=== PATIENT | female | born 1960 | race Asian ===

== ENCOUNTER 2017-09-01 11:55 | Emergency (ER) | payer BC ==
[~2017-09-01] VITALS: Ht 152.4 cm; Wt 63.0 kg
[2017-09-01 12:34] LABS: BASOPHILS % (AUTO) 0.4 % (0-1); EOSINOPHILS # (AUTO) 0.2 X10'3 (0-0.9); EOSINOPHILS % (AUTO) 2.8 % (0-6); HEMATOCRIT 37.4 % (35.0-45.0); HEMOGLOBIN 13.3 g/dl (12.0-16.0); LYMPHOCYTES # (AUTO) 0.9 X10'3 (1.1-4.8); MEAN CORPUSCULAR HEMOGLOBIN 30.4 PG (27.0-31.0); MEAN CORPUSCULAR HGB CONC 35.4 % (33.0-36.5); MEAN CORPUSCULAR VOLUME 85.9 FL (78-98); MEAN PLATELET VOLUME 8.3 FL (7.4-10.4); MONOCYTES # (AUTO) 0.4 X10'3 (0-0.9); MONOCYTES % (AUTO) 6.3 % (2-12); NEUTROPHILS # (AUTO) 4.2 X10'3 (1.8-7.7); NEUTROPHILS % (AUTO) 74.5 % (42-75); PLATELET COUNT 203 X10'3 (140-440); RED BLOOD COUNT 4.36 X10'6 (4.20-5.60); RED CELL DISTRIBUTION WIDTH 13.6 % (11.5-14.5); WHITE BLOOD COUNT 5.6 X10'3 (4.5-11.0)
[2017-09-01 12:48] LABS: PARTIAL THROMBOPLASTIN TIME 28 SECONDS (22-32)
[2017-09-01 13:00] LABS: ALANINE AMINOTRANSFERASE 29 U/L (12-78); ALBUMIN 4.2 G/DL (3.4-5.0); ALBUMIN/GLOBULIN RATIO 1.1 (1.1-1.5); ALKALINE PHOSPHATASE 68 IU/L (46-116); ANION GAP 9 (8-16); ASPARTATE AMINO TRANSFERASE 28 U/L (10-37); BILIRUBIN,TOTAL 0.5 MG/DL (0.1-1.0); BLOOD UREA NITROGEN 15 MG/DL (7-18); CALCIUM 9.7 MG/DL (8.5-10.1); CHLORIDE 103 MMOL/L (99-107); CREATININE 0.75 MG/DL (0.40-0.90); GLUCOSE 140 MG/DL (70-104); POTASSIUM 4.3 MMOL/L (3.5-5.1); SODIUM 141 MMOL/L (135-145); TOTAL CARBON DIOXIDE 29.2 MMOL/L (24-32); TOTAL PROTEIN 7.9 G/DL (6.4-8.2); eGFR 80 ML/MIN
[2017-09-01] MEDS ORDERED: mag hydrox/Alum hydrox/simeth 30ml oral suspension PO ONE (13:20)
[2017-09-01] MEDS ORDERED: LIDOcaine Viscous 15ml cup PO ONE (13:20)
[2017-09-01] MEDS ORDERED: ketorolac trometh. 30mg/ml inj. IM ONE (13:20)
[2017-09-01] MEDS ORDERED: NAPR-56 PO (13:31)
[2017-09-01 14:05] VITALS: BP 122/79
== END 2017-09-01 14:07 | disposition home or self-care (01) ==
LOC: ER 11:55
DX: R07.89 Other chest pain (principal); I10 Essential (primary) hypertension; E78.00 Pure hypercholesterolemia, unspecified
CPT/HCPCS: 36415; 71045; 80053; 84484; 85025; 85610; 85730; 93005; 99285; J1885

== ENCOUNTER 2017-09-03 09:00 | Inpatient (IN) | payer OTHER, BC ==
[2017-09-03] VITALS (12 sets, daily range): BP systolic 109–154; BP diastolic 56–86
[~2017-09-03] VITALS: Ht 152.4 cm; Wt 67.0 kg
[~2017-09-03 09:00] MED LIST: NAPR-56 PO
[2017-09-03] MEDS ORDERED: nitroGLYCERIN 0.4mg SUBLingual tab SL PRN ×2 (09:10→10:45)
[2017-09-03] MEDS ORDERED: aspirin 81mg tab.chew PO ONE (09:10)
[2017-09-03 09:22] LABS: BASOPHILS % (AUTO) 0.4 % (0-1); EOSINOPHILS # (AUTO) 0.1 X10'3 (0-0.9); EOSINOPHILS % (AUTO) 1.6 % (0-6); HEMATOCRIT 37.9 % (35.0-45.0); HEMOGLOBIN 13.1 g/dl (12.0-16.0); LYMPHOCYTES # (AUTO) 1.3 X10'3 (1.1-4.8); LYMPHOCYTES % (AUTO) 20.1 % (21-51); MEAN CORPUSCULAR HGB CONC 34.6 % (33.0-36.5); MEAN CORPUSCULAR VOLUME 86.6 FL (78-98); MEAN PLATELET VOLUME 7.9 FL (7.4-10.4); MONOCYTES # (AUTO) 0.6 X10'3 (0-0.9); MONOCYTES % (AUTO) 8.9 % (2-12); NEUTROPHILS # (AUTO) 4.4 X10'3 (1.8-7.7); PLATELET COUNT 207 X10'3 (140-440); RED BLOOD COUNT 4.38 X10'6 (4.20-5.60); RED CELL DISTRIBUTION WIDTH 12.9 % (11.5-14.5); WHITE BLOOD COUNT 6.4 X10'3 (4.5-11.0)
[2017-09-03 09:33] LABS: D-DIMER 0.98 MG/L FEU (0-0.50)
[2017-09-03] MEDS ORDERED: morphine 4 MG/ML inj SYRINge IV ONE ×2 (09:35→19:30)
[2017-09-03] MEDS ORDERED: mag hydrox/Alum hydrox/simeth 30ml oral suspension PO ONE (09:40)
[2017-09-03] MEDS ORDERED: famotidine/PF 10 mg/ml inj IV ONE (09:40)
[2017-09-03] MEDS ORDERED: LIDOcaine Viscous 15ml cup PO ONE (09:40)
[2017-09-03] MEDS ORDERED: sucralfate 1 gm tablet PO ONE (09:40)
[2017-09-03 09:44] LABS: ALANINE AMINOTRANSFERASE 25 U/L (12-78); ALBUMIN 2.7 G/DL (3.4-5.0); ALBUMIN/GLOBULIN RATIO 0.6 (1.1-1.5); ALKALINE PHOSPHATASE 68 IU/L (46-116); ANION GAP 6 (8-16); ASPARTATE AMINO TRANSFERASE 24 U/L (10-37); BILIRUBIN,TOTAL 0.5 MG/DL (0.1-1.0); BLOOD UREA NITROGEN 13 MG/DL (7-18); BUN/CREATININE RATIO 16.9 (6.6-38.0); CHLORIDE 104 MMOL/L (99-107); CREATININE 0.77 MG/DL (0.40-0.90); GLUCOSE 99 MG/DL (70-104); POTASSIUM 3.8 MMOL/L (3.5-5.1); SODIUM 140 MMOL/L (135-145); TOTAL CARBON DIOXIDE 29.9 MMOL/L (24-32); TOTAL PROTEIN 7.5 G/DL (6.4-8.2); eGFR 77 ML/MIN
[2017-09-03] MEDS ORDERED: iohexol 350MG/ML 100ml bottle IV ONE (10:23)
[2017-09-03] MEDS: normal saline 1000ml 1,000 ML IV SCH ×2 (10:39→17:19)
[2017-09-03] MEDS ORDERED: magnesium hydroxide 30ml (MOM) UD suspension PO PRN (10:40)
[2017-09-03] MEDS ORDERED: acetaminophen 325mg tablet PO PRN (10:40)
[2017-09-03] MEDS ORDERED: ondansetron/PF 4mg/2ml inj IV PRN (10:40)
[2017-09-03] MEDS ORDERED: CAFFEINE CITRATE 60 MG/3 ML injection vial IV PRN (10:45)
[2017-09-03] MEDS ORDERED: metoprolol tartrate 1mg/ml inj IV PRN (10:45)
[2017-09-03] MEDS: regadenoson 0.4mg/5ml syringe IV ONE ×2 (10:45→14:09)
[2017-09-03] MEDS ORDERED: regadenoson 0.4mg/5ml syringe IV ONE (13:59)
[2017-09-03] MEDS ORDERED: CAFFEINE CITRATE 60 MG/3 ML injection vial IV ONE (13:59)
[2017-09-03 17:10] LABS: LIPASE 104 U/L (73-393)
[2017-09-03] MEDS: mag hydrox/Alum hydrox/simeth 30ml oral suspension PO PRN ×2 (17:17→22:39)
[2017-09-03] MEDS ORDERED: pantoprazole 40 MG vial IV ONE (19:30)
[2017-09-04] VITALS (14 sets, daily range): BP systolic 112–154; BP diastolic 58–82
[2017-09-04] MEDS ORDERED: zolpidem 5mg tablet PO ONE (00:35)
[2017-09-04] MEDS ORDERED: HYDROcodone/acetaminophen 5mg/325mg tablet PO ONE (00:35)
[2017-09-04] MEDS: normal saline 1000ml 1,000 ML IV SCH ×2 (03:31→16:33)
[2017-09-04] MEDS: pantoprazole 40mg Tablet.DR PO SCH (07:25)
[2017-09-04] MEDS: mag hydrox/Alum hydrox/simeth 30ml oral suspension PO PRN ×3 (09:56→21:02)
[2017-09-04] MEDS ORDERED: LISI-600 PO (10:41)
[2017-09-04] MEDS ORDERED: FAMO20TA8 PO (10:41)
[2017-09-04] MEDS ORDERED: ZOLP12.543 (10:41)
[2017-09-04] MEDS ORDERED: normal saline 1000ml 1,000 ML IV SCH (13:47)
[2017-09-04] MEDS ORDERED: fentaNYL/PF 50MCG/1 ML 2ML syringe IV PRN (13:50)
[2017-09-04] MEDS ORDERED: MIDAZolam 5mg/5ml vial IV PRN (13:50)
[2017-09-04] MEDS ORDERED: simethicone 40mg/0.6ml oral drops 30ml MC ONE (13:50)
[2017-09-04] MEDS ORDERED: LIDOcaine Viscous 15ml cup PO ONE (13:50)
[2017-09-04] MEDS ORDERED: fentaNYL/PF 50MCG/1 ML 2ML syringe ONE (15:01)
[2017-09-04] MEDS ORDERED: LIDOcaine Viscous 15ml cup ONE (15:01)
[2017-09-04] MEDS ORDERED: MIDAZolam 5mg/5ml vial ONE (15:01)
[2017-09-04] MEDS ORDERED: HYDROcodone/acetaminophen 5mg/325mg tablet PO PRN (20:30)
[2017-09-05] MEDS: normal saline 1000ml 1,000 ML IV SCH (02:34)
[2017-09-05] MEDS: mag hydrox/Alum hydrox/simeth 30ml oral suspension PO PRN ×3 (02:35→13:04)
[2017-09-05 06:51] VITALS: BP 127/53
[2017-09-05] MEDS ORDERED: lisinopril 5mg tablet PO SCH (08:00)
[2017-09-05] MEDS: pantoprazole 40mg Tablet.DR PO SCH (08:00)
[2017-09-05 11:41] VITALS: BP 135/67
[2017-09-05] MEDS ORDERED: LORazepam 0.5 MG tablet PO PRN (12:40)
[2017-09-05] MEDS ORDERED: ATI0.5T PO (13:01)
[2017-09-05] MEDS ORDERED: HYDR-569 PO (13:01)
[2017-09-05] MEDS ORDERED: PANT40TA4 PO (13:01)
[2017-09-06] MEDS ORDERED: HYDR-569 PO (15:31)
[2017-09-06] MEDS ORDERED: ATI0.5T PO (15:31)
== END 2017-09-05 15:30 | disposition home or self-care (01) | DRG 440 ==
LOC: ER 09:00 → ED HOLD 10:45 → EDBEDREQ 15:03 → MED 3N 16:00
PROVIDERS: ADMIT Internal Medicine; ATTEND Internal Medicine
PROC: 0DB48ZX Excision of Esophagogastric Junction, Via Natural or Artificial Opening Endoscopic, Diagnostic (ICD-10-PCS; principal; 2017-09-04)
PROC: 0DB68ZX Excision of Stomach, Via Natural or Artificial Opening Endoscopic, Diagnostic (ICD-10-PCS; 2017-09-04)
DX: K86.9 Disease of pancreas, unspecified (principal); R13.10 Dysphagia, unspecified; E78.00 Pure hypercholesterolemia, unspecified; E78.5 Hyperlipidemia, unspecified; F41.9 Anxiety disorder, unspecified; F41.1 Generalized anxiety disorder; K21.0 Gastro-esophageal reflux disease with esophagitis; G89.29 Other chronic pain; I10 Essential (primary) hypertension; M54.2 Cervicalgia; Z79.899 Other long term (current) drug therapy
CPT/HCPCS: 36415; 43239; 71045; 71275; 78452; 80053; 82378; 83690; 83880; 84484; 85025; 85379; 86301; 87070; 93017; 96374; 99285; A4620; A9500; C9113; G0500; J2250; J2270; J3010; J3490; J7030; Q9967

== ENCOUNTER 2017-09-23 13:08 | Emergency (ER) | payer OTHER, BC ==
[~2017-09-23] VITALS: Ht 152.4 cm; Wt 61.0 kg
[~2017-09-23 13:08] MED LIST changes: +ATI0.5T PO; +FAMO20TA8 PO; +HYDR-569 PO; +LISI-600 PO; -NAPR-56 PO; +PANT40TA4 PO; +ZOLP12.543
[2017-09-23] MEDS ORDERED: cloNIDine 0.1 mg tablet PO ONE (13:40)
[2017-09-23] MEDS ORDERED: LORazepam 1 MG tablet PO ONE (13:40)
[2017-09-23 13:52] LABS: BASOPHILS # (AUTO) 0.1 X10'3 (0-0.2); BASOPHILS % (AUTO) 1.6 % (0-1); EOSINOPHILS # (AUTO) 0.2 X10'3 (0-0.9); EOSINOPHILS % (AUTO) 4.5 % (0-6); HEMATOCRIT 36.4 % (35.0-45.0); HEMOGLOBIN 12.5 g/dl (12.0-16.0); LYMPHOCYTES % (AUTO) 28.5 % (21-51); MEAN CORPUSCULAR HEMOGLOBIN 30.1 PG (27.0-31.0); MEAN CORPUSCULAR HGB CONC 34.3 % (33.0-36.5); MEAN CORPUSCULAR VOLUME 87.8 FL (78-98); MEAN PLATELET VOLUME 8.3 FL (7.4-10.4); MONOCYTES # (AUTO) 0.5 X10'3 (0-0.9); MONOCYTES % (AUTO) 15.1 % (2-12); NEUTROPHILS # (AUTO) 1.7 X10'3 (1.8-7.7); NEUTROPHILS % (AUTO) 50.3 % (42-75); PLATELET COUNT 181 X10'3 (140-440); RED BLOOD COUNT 4.14 X10'6 (4.20-5.60); RED CELL DISTRIBUTION WIDTH 13.3 % (11.5-14.5); WHITE BLOOD COUNT 3.4 X10'3 (4.5-11.0)
[2017-09-23 13:57] LABS: CLARITY,URINE Clear (Clear); COLOR,URINE Yellow (Yellow); GLUCOSE, URINE Negative (Neg); KETONES,URINE Negative (Neg); LEUKOCYTE ESTERASE ,URINE Negative (Neg); NITRITES, URINE Negative (Neg); OCCULT BLOOD,URINE Negative (Neg); PH,URINE 6.5 (4.8-8.0); PROTEIN,URINE Negative (Neg)
[2017-09-23 14:02] LABS: UA COLLECTION TYPE CLN CATCH MIDSTREAM
[2017-09-23 14:06] LABS: ALANINE AMINOTRANSFERASE 30 U/L (12-78); ALBUMIN 3.9 G/DL (3.4-5.0); ALKALINE PHOSPHATASE 76 IU/L (46-116); ANION GAP 5 (8-16); ASPARTATE AMINO TRANSFERASE 21 U/L (10-37); BILIRUBIN,TOTAL 0.3 MG/DL (0.1-1.0); BLOOD UREA NITROGEN 10 MG/DL (7-18); BUN/CREATININE RATIO 14.3 (6.6-38.0); CALCIUM 9.2 MG/DL (8.5-10.1); CHLORIDE 105 MMOL/L (99-107); GLUCOSE 99 MG/DL (70-104); POTASSIUM 3.6 MMOL/L (3.5-5.1); SODIUM 140 MMOL/L (135-145); TOTAL CARBON DIOXIDE 30.2 MMOL/L (24-32); TOTAL PROTEIN 7.7 G/DL (6.4-8.2); eGFR 86 ML/MIN
[2017-09-23] MEDS ORDERED: ondansetron/PF 4mg/2ml inj IV ONE (21:45)
== END 2017-09-23 23:15 | disposition short-term general hospital (02) ==
LOC: ER 13:09
DX: E23.7 Disorder of pituitary gland, unspecified (principal); R51 Headache; R07.9 Chest pain, unspecified; I10 Essential (primary) hypertension; E78.00 Pure hypercholesterolemia, unspecified; Z79.899 Other long term (current) drug therapy
CPT/HCPCS: 36415; 70450; 70543; 70553; 71045; 80053; 81003; 83880; 84146; 84484; 85025; 93005; 96374; 99285; J2405

== ENCOUNTER 2020-03-28 14:43 | Emergency (ER) | payer OTHER, BC ==
[~2020-03-28] VITALS: Ht 154.9 cm; Wt 69.0 kg
[~2020-03-28 14:43] MED LIST changes: +HYDR-4383 PO; -HYDR-569 PO; -PANT40TA4 PO; +PANT40TA54 PO
[2020-03-28 14:51] VITALS: BP 130/81
[2020-03-28 15:46] LABS: BASOPHILS % (AUTO) 0.4 % (0-1); EOSINOPHILS # (AUTO) 0.1 X10'3 (0-0.9); EOSINOPHILS % (AUTO) 1.6 % (0-6); HEMATOCRIT 36.1 % (35.0-45.0); HEMOGLOBIN 12.3 g/dl (12.0-16.0); LYMPHOCYTES # (AUTO) 1.2 X10'3 (1.1-4.8); LYMPHOCYTES % (AUTO) 21.1 % (21-51); MEAN CORPUSCULAR HEMOGLOBIN 29.2 PG (27.0-31.0); MEAN PLATELET VOLUME 8.4 FL (7.4-10.4); MONOCYTES # (AUTO) 0.4 X10'3 (0-0.9); MONOCYTES % (AUTO) 7.1 % (2-12); NEUTROPHILS # (AUTO) 3.9 X10'3 (1.8-7.7); NEUTROPHILS % (AUTO) 69.8 % (42-75); PLATELET COUNT 189 X10'3 (140-440); WHITE BLOOD COUNT 5.6 X10'3 (4.5-11.0)
[2020-03-28] MEDS ORDERED: HYDROcodone/acetaminophen 5mg/325mg tablet PO ONE (16:00)
[2020-03-28] MEDS ORDERED: ondansetron 4mg rapidly disintigrating tab PO ONE (16:00)
[2020-03-28] MEDS ORDERED: LORazepam 0.5 MG tablet PO ONE (16:00)
[2020-03-28 16:22] LABS: CLARITY,URINE SLIGHTLY CLOUDY (Clear); COLOR,URINE STRAW (Yellow); GLUCOSE, URINE NEGATIVE (Neg); KETONES,URINE NEGATIVE (Neg); LEUKOCYTE ESTERASE ,URINE SMALL (Neg); NITRITES, URINE NEGATIVE (Neg); OCCULT BLOOD,URINE NEGATIVE (Neg); PROTEIN,URINE NEGATIVE (Neg); UROBILINOGEN,URINE 0.2 E.U/dL (0.2-1.0)
[2020-03-28 16:27] LABS: UA COLLECTION TYPE CLN CATCH MIDSTREAM
[2020-03-28 16:28] LABS: BACTERIA,URINE FEW /HPF (Neg); RBC,URINE 0-2 /HPF (0-2); SQUAMOUS EPITHELIAL CELL,UR FEW /LPF (FEW); TRANSITIONAL EPI CELLS,URINE MODERATE /HPF; WBC CLUMPS,URINE MANY /HPF (NEGATIVE)
[2020-03-28] MEDS ORDERED: CEPH500C5 PO (16:40)
[2020-03-28] MEDS ORDERED: GABA300C PO (16:45)
[2020-03-28] MEDS ORDERED: BACL10TA PO (16:45)
== END 2020-03-28 17:13 | disposition home or self-care (01) ==
LOC: ER 14:46
DX: M54.16 Radiculopathy, lumbar region (principal); N30.00 Acute cystitis without hematuria; R25.2 Cramp and spasm; E78.00 Pure hypercholesterolemia, unspecified; I10 Essential (primary) hypertension; Z79.899 Other long term (current) drug therapy
CPT/HCPCS: 36415; 81001; 83690; 85025; 87088; 99284